=== PATIENT | male | born 1960 | race Two or more races ===

== ENCOUNTER 2017-10-31 10:20 | Outpatient (CLI) | payer OTHER | END 2017-10-31 11:47 | disposition home or self-care (01) | LOC: RAD 10:20 | DX: J10.1 Influenza due to other identified influenza virus with other respiratory manifestations (principal); J10.89 Influenza due to other identified influenza virus with other manifestations ==

== ENCOUNTER 2019-06-17 11:49 | Outpatient (CLI) | payer OTHER | END 2019-06-20 17:00 | disposition home or self-care (01) | LOC: TOM 11:49 | DX: N41.0 Acute prostatitis (principal) ==

== ENCOUNTER 2019-06-17 12:46 | Outpatient (CLI) | payer OTHER | END 2019-06-17 15:00 | disposition home or self-care (01) | LOC: LAB 12:46 | DX: N41.0 Acute prostatitis (principal) ==

== ENCOUNTER → 2025-02-06 | Outpatient (CLI) | payer OTHER | END | disposition home or self-care (01) | LOC: TOM 11:33 | PROVIDERS: ATTEND Internal Medicine Cardiovascular Disease | DX: R10.13 Epigastric pain (principal) ==